=== PATIENT | female | born 1970 | race Caucasian/White ===

== ENCOUNTER 2020-07-18 19:32 | Inpatient (IN) | payer MEDICAID ==
[~2020-07-18] VITALS: Ht 177.8 cm; Wt 97.3 kg
[2020-07-18 20:56] LABS: BASOPHILS 0.2 % (0-2); EOSINOPHILS 0.9 % (0-7); HEMATOCRIT 40.1 % (36.0-48.0); HEMOGLOBIN 13.1 g/dL (12-16); MCH 28.8 pg (26.0-34.0); MCHC 32.7 g/dL (31.0-37.0); MCV 88.1 fL (80.0-100.0); MEAN PLATELET VOLUME 8.9 fL (7.4-10.4); MONOCYTES 11.1 % (2-11); NEUTROPHIL ABS# 11.78 10x3/uL (1.56-6.13); NEUTROPHILS 67.8 % (40-80); PLATELET COUNT 371 10x3/uL (130-400); RBC 4.55 10x6/uL (4.00-5.40); RDW 13.2 % (11.5-14.5); WBC 17.4 10x3/uL (4.8-10.8)
[2020-07-18 21:05] LABS: CALC OSMOLALITY 271 mosm/kg (275-300); CALCIUM 9.2 mg/dL (8.5-10.1); CARBON DIOXIDE 21.5 mmol/L (21.0-32.0); CHLORIDE - SERUM 102 mmol/L (98-107); CREATININE - SERUM 0.8 mg/dL (0.6-1.3); GLUCOSE 111 mg/dL (74-106); POTASSIUM - SERUM 3.6 mmol/L (3.5-5.1); SODIUM 136 mmol/L (136-145); UREA NITROGEN 11 mg/dL (7-18); eGFR NON AFRICAN AMERICAN 80 mL/min (90-120)
[2020-07-18 21:15] LABS: ALBUMIN 3.2 g/dL (3.4-5.0); ALKALINE PHOSPHATASE 89 U/L (30-120); ALT (SGPT) 30 U/L (10-68); AMYLASE - SERUM 17 U/L (25-115); BILIRUBIN - TOTAL 1.35 mg/dL (0.2-1.3); LIPASE 50 U/L (73-393); PROTEIN - SERUM 7.9 g/dL (6.4-8.2)
[2020-07-18 21:17] LABS: TROPONIN-I < 0.017 ng/mL (0.000-0.060)
[2020-07-18 22:55] LABS: BILIRUBIN NEGATIVE (NEGATIVE); KETONE SMALL mg/dL (NEGATIVE); NITRITE NEGATIVE (NEGATIVE); UROBILINOGEN NORMAL mg/dL (< 2); WHITE CELLS - URINE 0-5 HPF (0-4)
[2020-07-18 22:56] LABS: BACTERIA FEW HPF (NONE SEEN)
[2020-07-19] VITALS (7 sets, daily range): BP systolic 95–119; BP diastolic 35–77; Ht 177.8 cm; Wt 97.3 kg
--- NOTE | 2020-07-19 16:51 | NUR ---
PT EDUCATED ON SCD'S, PT IS AMBULATORY IN ROOM, ACTIVE MAKING HER BED, STATES AT NIGHT WHEN SHE LAYS DOWN SHE WILL WEAR THEM
--- NOTE | 2020-07-19 22:49 | NUR ---
PT GOING TO SHOWER REQUESTED
--- NOTE | 2020-07-19 23:12 | NUR ---
PT BACK FROM SHOWER
--- NOTE | 2020-07-19 23:50 | NUR ---
RECEIVED PT FROM ER VIA WHEELCHAIR. PT A&O X4. PIV TO LEFT HAND PATENT AND S/L, NO REDNESS OR SWELLING. ABD DISTENDED AND TENDER TO TOUCH. PT ABLE TO AMBULATE AD RAMONA. EDUCATED PT ON CL AND NEEDS, VERBALIZED UNDERSTANDING. BED LOW, CL IN REACH.
[2020-07-20] VITALS: BP 110/66
--- NOTE | 2020-07-20 01:30 | NUR ---
PT LAYING IN BED EYES CLOSED, EVEN RESPIRATIONS, NO SIGNS OF DISTRESS. BED LOW, CL IN REACH.
[2020-07-20 06:27] LABS: BASOPHILS 0.4 % (0-2); EOSINOPHILS 2.9 % (0-7); HEMATOCRIT 36.2 % (36.0-48.0); HEMOGLOBIN 11.6 g/dL (12-16); IMMATURE GRANULOCYTES 1.1 % (0-5); LYMPHOCYTE ABS# 3.08 10x3/uL (1.18-3.74); LYMPHOCYTES 32.9 % (15-50); MCH 28.6 pg (26.0-34.0); MCV 89.2 fL (80.0-100.0); MEAN PLATELET VOLUME 9.6 fL (7.4-10.4); MONOCYTES 12.8 % (2-11); NEUTROPHIL ABS# 4.66 10x3/uL (1.56-6.13); NEUTROPHILS 49.9 % (40-80); RBC 4.06 10x6/uL (4.00-5.40)
[2020-07-20 06:38] LABS: PLATELET COUNT 454 10x3/uL (130-400); WBC 9.4 10x3/uL (4.8-10.8)
[2020-07-20 06:51] LABS: ALBUMIN 2.7 g/dL (3.4-5.0); ALKALINE PHOSPHATASE 72 U/L (30-120); ALT (SGPT) 24 U/L (10-68); BILIRUBIN - TOTAL 0.38 mg/dL (0.2-1.3); CALC OSMOLALITY 276 mosm/kg (275-300); CALCIUM 8.6 mg/dL (8.5-10.1); CARBON DIOXIDE 22.5 mmol/L (21.0-32.0); CHLORIDE - SERUM 108 mmol/L (98-107); CREATININE - SERUM 0.7 mg/dL (0.6-1.3); GLUCOSE 86 mg/dL (74-106); POTASSIUM - SERUM 3.5 mmol/L (3.5-5.1); PROTEIN - SERUM 6.6 g/dL (6.4-8.2); SODIUM 140 mmol/L (136-145); UREA NITROGEN 10 mg/dL (7-18); eGFR NON AFRICAN AMERICAN > 90 mL/min (90-120)
[2020-07-20 06:58] LABS: INR 1.26 (0.85-1.17); PROTIME 14.6 SECONDS (11.6-15.0)
[2020-07-20 08:17] VITALS: BP 132/42
--- NOTE | 2020-07-20 11:17 | NUR ---
UPPER DENTURES REMOVED & SENT WITH PT TO PACU; PT STATED HER LOWER DENTURES WERE BROKEN & WANTED THEM TO STAY IN, ANESTH. ALLOWED THIS-SH GOLD & SILVER RING BANDS SENT BACK TO FLOOR PER SHEILA CASEY RN
--- NOTE | 2020-07-20 12:48 | NUR ---
BUFFY SUAREZ INITIATED AT 6104
--- NOTE | 2020-07-20 13:07 | OP ---
PATIENT NAME: ZHEN RODRIGUEZ MEDICAL RECORD: [id number] :66 LOCATION:[id number] ADMISSION DATE:07/18/20 SURGEON: LJ WELCH MD DATE OF OPERATION: 07/20/2020 PREOPERATIVE DIAGNOSIS: Acute cholecystitis. POSTOPERATIVE DIAGNOSIS: Acute cholecystitis. PROCEDURE: Laparoscopic cholecystectomy. SURGEON: Jl Welch MD DESCRIPTION OF PROCEDURE: The patient's abdomen was prepped and draped in sterile fashion. A cutdown was made on the superior aspect of the umbilicus, 0 Vicryls were placed on the fascia bilaterally and the fascia was incised with a 15-blade. I then bluntly entered the peritoneal cavity and placed a 12-mm Devin port. Under direct visualization, a 5-mm trocar was placed in the epigastrium and two more 5-mm trocars were placed in the right subcostal region. The gallbladder was noted to be markedly inflamed. The patient had some acute and chronic inflammatory changes. Some of the fatty tissue adherent to the fundus of the gallbladder was densely adherent and very thick consistent with a more chronic inflammation. Eventually, we were able to dissect this omentum off of the dome of the gallbladder. As we dissected down towards the infundibulum, the acute inflammation was more easily visualized. We eventually were able to dissect out the cystic artery and cystic duct and had our critical view of safety. These 2 structures were clipped proximally and distally and ligated in standard fashion. The gallbladder was then taken off the liver bed and placed into an EndoCatch bag. Any bleeding from the liver bed was treated with electrocautery. We irrigated out the right upper quadrant and assured there was no sign of any active bleeding or bile leakage. A 19 round Leonardo drain was inserted through the right lateral subcostal incision and placed near the gallbladder fossa. This was sutured into place with 3-0 nylon. The ports and insufflation were then removed and the gallbladder was taken out through the umbilicus. The umbilical fascia was closed with interrupted 0 Vicryls times 3. The wounds were then irrigated out with normal saline and infused with 10 mL of 0.25% Marcaine with epinephrine. The skin incisions were closed with subcutaneous 5-0 Monocryl and dressed appropriately. COMPLICATIONS: None. CONDITION: Stable. ANESTHESIA: General endotracheal and local. BLOOD LOSS: 100 mL. TRANSINT:[id number] Voice Confirmation ID: [id number] DOCUMENT ID: [id number] OPERATIVE REPORT [id number] ZHEN RODRIGUEZ CHRISTIAN MD at 1307 CC: [id number] DICTATION DATE: 07/20/20 1218 HOSPICE MUSIC THERAPY: 07/20/[address] [facility] [address] [id number]
[2020-07-20 13:20] VITALS: BP 112/54
[2020-07-20 20:00] VITALS: BP 109/57
[2020-07-21] VITALS: BP 116/58
[2020-07-21 04:00] VITALS: BP 108/61
--- NOTE | 2020-07-21 07:30 | NUR ---
NURSE INFORMED OF PATIENT OXYGEN SATURATION AT 73% ON ROOM AIR. PLACED PATIENT ON 7L HIGH FLOW NASAL CANNULA WITH SATS STILL AT 88-90%. CALLED RESPIRATORY FOUR TIMES WITH NO ANSWER. WILL CONTINUE TO MONITOR.
[2020-07-21 07:37] LABS: BASOPHILS 0.1 % (0-2); EOSINOPHILS 0.4 % (0-7); HEMATOCRIT 37.3 % (36.0-48.0); HEMOGLOBIN 11.8 g/dL (12-16); IMMATURE GRANULOCYTES 0.7 % (0-5); LYMPHOCYTE ABS# 2.74 10x3/uL (1.18-3.74); LYMPHOCYTES 15.6 % (15-50); MCH 28.2 pg (26.0-34.0); MCHC 31.6 g/dL (31.0-37.0); MCV 89.2 fL (80.0-100.0); MEAN PLATELET VOLUME 9.1 fL (7.4-10.4); MONOCYTES 12.5 % (2-11); NEUTROPHIL ABS# 12.43 10x3/uL (1.56-6.13); NEUTROPHILS 70.7 % (40-80); PLATELET COUNT 462 10x3/uL (130-400); RBC 4.18 10x6/uL (4.00-5.40); RDW 13.4 % (11.5-14.5)
[2020-07-21 07:39] LABS: WBC 17.6 10x3/uL (4.8-10.8)
[2020-07-21 08:07] LABS: ALBUMIN 2.8 g/dL (3.4-5.0); ALKALINE PHOSPHATASE 98 U/L (30-120); BILIRUBIN - TOTAL 0.62 mg/dL (0.2-1.3); CALC OSMOLALITY 271 mosm/kg (275-300); CALCIUM 8.4 mg/dL (8.5-10.1); CARBON DIOXIDE 25.7 mmol/L (21.0-32.0); CHLORIDE - SERUM 102 mmol/L (98-107); CREATININE - SERUM 0.8 mg/dL (0.6-1.3); GLUCOSE 118 mg/dL (74-106); POTASSIUM - SERUM 3.7 mmol/L (3.5-5.1); PROTEIN - SERUM 6.9 g/dL (6.4-8.2); SODIUM 136 mmol/L (136-145); UREA NITROGEN 9 mg/dL (7-18); eGFR NON AFRICAN AMERICAN 80 mL/min (90-120)
[2020-07-21 08:08] LABS: ALT (SGPT) 56 U/L (10-68)
--- NOTE | 2020-07-21 08:45 | NUR ---
GOT EMANUEL OF RESPIRATORY THERAPY. THEY SAID SHE IS NOT TAKING A DEEP BREATH, AND TO ENCOURAGE THE INCENTIVE SPIROMETER. OXYGEN SATURATION SITTING AT 91% ON 7L.
[2020-07-21 09:21] VITALS: BP 108/61
--- NOTE | 2020-07-21 10:00 | NUR ---
RECHECKED OXYGEN SATURATION ON 7L, 93%. SPOKE TO GILDARDO XAVIER APRN. WILL CONTINUE TO MONITOR.
[2020-07-21 13:06] VITALS: BP 107/50
--- NOTE | 2020-07-21 17:25 | NUR ---
IN BED AROUSES TO VOICE. DENIES NEEDS AT THIS TIME. BED LOW POSITION, CALL LIGHT IN REACH. FREE FROM SIGNS OF DISTRESS. ENCOURAGED ICENTIVE SPIROMETER USE. WILL CONTINUE TO MONITOR.
[2020-07-21 21:02] VITALS: BP 126/61
[2020-07-22 00:25] VITALS: BP 107/50
[2020-07-22 04:38] VITALS: BP 109/60
--- NOTE | 2020-07-22 04:47 | NUR ---
PATIENT REPORTS MODERATE IMPROVEMENT IN PAIN. CONTINUES HISTORY FACULTY MEMBER PUMP. AMADEO DRAIN COMPRESSED, PATENT AND DRAINING. SATS ADEQUATE ON 7L HFNC.
--- NOTE | 2020-07-22 08:07 | NUR ---
IN BED WATCHING TV. DENIES NEEDS AT THIS TIME. BED LOW POSITION, CALL LIGHT IN REACH. FREE FROM SIGNS OF DISTRESS. WILL CONTNUE TO MONITOR. TURNED OXYGEN DOWN TO 5L TO START TITRATION DOWN. PATIENT SAT AT 96%.
[2020-07-22 09:06] VITALS: BP 101/51
--- NOTE | 2020-07-22 10:52 | NUR ---
IV WENT BAD. REMOVED WITH CATH TIP INTACT. RESTARTED IV IN LEFT FOREARM. STUCK 4 TIMES. WILL CONTINUE TO MONITOR.
[2020-07-22 11:57] VITALS: BP 105/60
[2020-07-22 18:04] VITALS: BP 101/51
[2020-07-22 20:00] VITALS: BP 122/45
[2020-07-23] VITALS: BP 112/55
--- NOTE | 2020-07-23 00:09 | NUR ---
PATIENT SATS AT 95% AT 2L VIA NC. DENIES SOB. AMADEO DRAIN PATENT. PAIN MANAGED WITH TECHNICAL SERVICE REP PUMP.
[2020-07-23 04:00] VITALS: BP 99/56
[2020-07-23 05:35] LABS: BASOPHILS 0.2 % (0-2); EOSINOPHILS 2.3 % (0-7); HEMATOCRIT 34.2 % (36.0-48.0); HEMOGLOBIN 10.7 g/dL (12-16); IMMATURE GRANULOCYTES 1.9 % (0-5); LYMPHOCYTE ABS# 2.55 10x3/uL (1.18-3.74); LYMPHOCYTES 20.6 % (15-50); MCH 27.9 pg (26.0-34.0); MCHC 31.3 g/dL (31.0-37.0); MCV 89.3 fL (80.0-100.0); MEAN PLATELET VOLUME 9.3 fL (7.4-10.4); MONOCYTES 12.6 % (2-11); NEUTROPHIL ABS# 7.71 10x3/uL (1.56-6.13); NEUTROPHILS 62.4 % (40-80); RBC 3.83 10x6/uL (4.00-5.40); RDW 13.2 % (11.5-14.5)
[2020-07-23 05:42] LABS: PLATELET COUNT 366 10x3/uL (130-400); WBC 12.4 10x3/uL (4.8-10.8)
[2020-07-23 05:59] LABS: ALBUMIN 2.4 g/dL (3.4-5.0); ALKALINE PHOSPHATASE 92 U/L (30-120); BILIRUBIN - TOTAL 0.66 mg/dL (0.2-1.3); CALC OSMOLALITY 265 mosm/kg (275-300); CALCIUM 8.6 mg/dL (8.5-10.1); CARBON DIOXIDE 26.2 mmol/L (21.0-32.0); CHLORIDE - SERUM 104 mmol/L (98-107); CREATININE - SERUM 0.6 mg/dL (0.6-1.3); GLUCOSE 106 mg/dL (74-106); MAGNESIUM - SERUM 2.1 mg/dL (1.8-2.4); POTASSIUM - SERUM 3.4 mmol/L (3.5-5.1); PROTEIN - SERUM 6.2 g/dL (6.4-8.2); SODIUM 134 mmol/L (136-145); TROPONIN-I < 0.017 ng/mL (0.000-0.060); UREA NITROGEN 7 mg/dL (7-18); eGFR NON AFRICAN AMERICAN > 90 mL/min (90-120)
[2020-07-23 06:10] LABS: ALT (SGPT) 39 U/L (10-68)
--- NOTE | 2020-07-23 07:50 | NUR ---
SITTING ON SIDE OF BED. DENIES NEEDS AT THIS TIME. BED LOW POSITION, CALL LIGHT IN REACH. FREE FROM SIGNS OF DISTRESS. NASAL CANNULA IN PLACE. WILL CONTINUE TO MONITOR.
[2020-07-23 09:04] VITALS: BP 111/45
[2020-07-23 12:43] VITALS: BP 101/53
--- NOTE | 2020-07-23 12:43 | NUR ---
SITTING UP IN CHAIR. DENIES NEEDS AT THIS TIME. CALL LIGHT IN REACH. WILL CONTINUE TO MONITOR.
[2020-07-23 16:35] VITALS: BP 134/53
--- NOTE | 2020-07-23 18:57 | NUR ---
REMOVED AMADEO DRAIN PER PHYSICIAN ORDERS. 2X2 GUAZE PLACED WITH TEGADERM. SITE CDI.
[2020-07-23 20:00] VITALS: BP 112/45
--- NOTE | 2020-07-23 22:31 | NUR ---
DRAIN SITE HAS DRESSING IN PLACE, CDI. PATIENT TRANSITIONING TO PO PAIN MEDICATION PRN AND SCHEDULED FLEXERIL. EDUCATION PROVIDED ON TRANSITION, VERBALIZED UNDERSTANDING AND AGREEANCE WITH THE PLAN. ABLE TO AMBULATE TO THE BATHROOM, REQUIRES USE OF TRAPEZE BAR IN GETTING UP OUT OF BED. USING 1L NASAL CANNULA PRN, ONLY NEEDS IT WHEN AMBULATING FREQUENTLY. INCENTIVE SPIROMETER AND COUGH/DEEP BREATHE ENCOURAGED.
[2020-07-24] VITALS: BP 100/47
[2020-07-24 04:00] VITALS: BP 102/47
[2020-07-24 07:26] LABS: BASOPHILS 0.2 % (0-2); EOSINOPHILS 3.2 % (0-7); HEMATOCRIT 33.7 % (36.0-48.0); HEMOGLOBIN 10.9 g/dL (12-16); IMMATURE GRANULOCYTES 2.2 % (0-5); LYMPHOCYTE ABS# 3.06 10x3/uL (1.18-3.74); LYMPHOCYTES 25.3 % (15-50); MCH 28.6 pg (26.0-34.0); MCHC 32.3 g/dL (31.0-37.0); MCV 88.5 fL (80.0-100.0); MEAN PLATELET VOLUME 9.2 fL (7.4-10.4); MONOCYTES 12.4 % (2-11); NEUTROPHIL ABS# 6.84 10x3/uL (1.56-6.13); NEUTROPHILS 56.7 % (40-80); RBC 3.81 10x6/uL (4.00-5.40); RDW 13.1 % (11.5-14.5); WBC 12.1 10x3/uL (4.8-10.8)
[2020-07-24 07:28] LABS: PLATELET COUNT 451 10x3/uL (130-400)
[2020-07-24 07:43] LABS: ALBUMIN 2.5 g/dL (3.4-5.0); ALKALINE PHOSPHATASE 92 U/L (30-120); ALT (SGPT) 39 U/L (10-68); BILIRUBIN - TOTAL 0.52 mg/dL (0.2-1.3); CALC OSMOLALITY 271 mosm/kg (275-300); CALCIUM 8.8 mg/dL (8.5-10.1); CHLORIDE - SERUM 103 mmol/L (98-107); CREATININE - SERUM 0.6 mg/dL (0.6-1.3); GLUCOSE 97 mg/dL (74-106); MAGNESIUM - SERUM 2.1 mg/dL (1.8-2.4); PHOSPHOROUS 3.4 mg/dL (2.5-4.9); POTASSIUM - SERUM 3.3 mmol/L (3.5-5.1); PROTEIN - SERUM 6.3 g/dL (6.4-8.2); SODIUM 137 mmol/L (136-145); UREA NITROGEN 7 mg/dL (7-18); eGFR NON AFRICAN AMERICAN > 90 mL/min (90-120)
[2020-07-24 08:52] VITALS: BP 118/68
[2020-07-24 12:19] VITALS: BP 110/57
--- NOTE | 2020-07-24 12:46 | NUR ---
SITTING UP IN BED WATCHING TV, NO S/S OF DISTRESS, DENIES NEEDS AT THIS TIME, WILL CONT TO MONITOR.
[2020-07-24] MEDS ORDERED: BACTRIM DS TAB1 EAC1 PO (13:25)
[2020-07-24] MEDS ORDERED: HYDROCODON-ACE1 EAC7 PO (13:25)
--- NOTE | 2020-07-24 13:58 | NUR ---
IV OUT, CATHETER TIP INTACT, WAITING FOR DC PAPERWORK.
--- NOTE | 2020-07-24 14:08 | NUR ---
Nutrition Follow-up AMADEO drain removed yesterday. Tolerating CL diet and advanced to Regular today. Plans for discharge today. Diet: Regular PO intake: 50-100% x last 2 meals. Patient was in bathroom at time of RD visit. Last BM: 07/22/20 x 2. Wt: 214# (07/19/20) Meds noted: abx Labs noted: K 3.3(L), Alb 2.5(L) Recommend continue Regular diet as tolerated. RD will follow-up 07/27/20 if still admitted.
--- NOTE | 2020-07-24 14:13 | MORECARE ---
CASE MANAGEMENT DISCHARGE SUMMARY PATIENT: ZHEN RODRIGUEZ UNIT: [id number] ADM DATE: 07/18/20 AGE: 50 : 66 SEX: F ROOM/BED: D.2229 AUTHOR: LONI GASCA PHYSICIAN: REFERRING PHYSICIAN: CHAPITO WELCH MD DATE OF SERVICE: 07/24/20 Discharge Plan Patient Name: ZHEN RODRIGUEZ [facility] [facility] 1970 Planned Disposition: Home Anticipated Discharge Date: Discharge Date: Expected LOS: Initial Reviewer: [email or web address] Initial Review Date: 07/19/2020 Generated: 07/24/20 3:12 pm DCPIA - Discharge Planning Initial Assessment Updated by [email or web address]: Gin Mo on 07/24/20 2:11 pm * Is the patient Alert and Oriented? Yes * PCP NONE * Pharmacy [address] * Preadmission Environment Home with Family * ADLs Independent * Equipment None * Community resources currently utilized None * Additional services required to return to the preadmission environment? No * Can the patient safely return to the preadmission environment? Yes * Has this patient been hospitalized within the prior 30 days at any hospital? No Patient Name: ZHEN RODRIGUEZ Page [id number] at 1413 All edits/amendments must be made on the electronic document DICTATION DATE: 07/24/201411 TANK FILLER: GERMÁN 07/24/20 1412 RPT#: [id number] CO DATE: STATUS: ADM IN [facility] [address] [place] [address] END OF REPORT
--- NOTE | 2020-07-24 14:21 | MORECARE ---
CASE MANAGEMENT DISCHARGE SUMMARY PATIENT: ZHEN RODRIGUEZ UNIT: [id number] ADM DATE: 07/18/20 AGE: 50 : 66 SEX: F ROOM/BED: D.2229 AUTHOR: LONI GASCA PHYSICIAN: REFERRING PHYSICIAN: CHAPITO WELCH MD DATE OF SERVICE: 07/24/20 Discharge Plan Patient Name: ZHEN RODRIGUEZ Facility: [facility]:[place] : 1970 Planned Disposition: Home Anticipated Discharge Date: Discharge Date: Expected LOS: Initial Reviewer: [email or web address] Initial Review Date: 07/19/2020 Generated: 07/24/20 3:20 pm Comments DCP- Discharge Planning Updated by [email or web address]: [place] Mo on 07/24/20 1:[address] Patient Name: ZHEN RODRIGUEZ Admission Status: ER Accout number: [id number] Admission Date: 07-18-2020 : 1970 Admission Diagnosis:ACUTE CHOLECYSTITIS Attending: CHAPITO WELCH Current LOS: 6 Anticipated DC Date: Planned Disposition: Home Primary Insurance: MEDICAID [place] PENDING Discharge Planning Comments: CM met with patient at bedside after obtaining verbal consent. CM discussed availability / needs of home health, REHAB and medical equipment. PATIENT DENIES ANY DISCHARGE NEEDS. STATES HER RIDE WILL BE HERE IN APPROX 20 MINUTES. [facility] IS ABLE TO BUY HER MEDICATIONS, HER MEDICAID IS PENDING. SHE HAS 2 PRESCRIPTIONS FOR HOME. CM TO FOLLOW AND ASSIST NEEDED. Phonograph Needle Tip Maker: Gin Mo DCPIA - Discharge Planning Initial Assessment Updated by [id number]: Gin Mo on 07/24/20 2:11 pm * Is the patient Alert and Oriented? Yes * PCP NONE * Pharmacy [address] * Preadmission Environment Home with Family * ADLs Independent * Equipment None * Community resources currently utilized None * Additional services required to return to the preadmission environment? No * Can the patient safely return to the preadmission environment? Yes * Has this patient been hospitalized within the prior 30 days at any hospital? No Last DP export: 07/24/20 1:13 pm Patient Name: ZHEN RODRIGUEZ Page [phone] at 1421 All edits/amendments must be made on the electronic document DICTATION DATE: 07/24/201420 HOSE TESTER: GERMÁN 07/24/201420 RPT#: [id number] DC DATE: STATUS: ADM IN [facility] [address] [place] [address] END OF REPORT
--- NOTE | 2020-07-24 14:29 | NUR ---
DC PAPERS SIGNED, DC`D VIA HOSPITAL STAFF AND WHEELCHAIR. PT STATES NO CONCERNS.
--- NOTE | 2020-07-25 10:35 | MORECARE ---
CASE MANAGEMENT DISCHARGE SUMMARY PATIENT: ZHEN RODRIGUEZ UNIT: [id number] ADM DATE: 07/18/20 AGE: 50 : 66 SEX: F ROOM/BED: D.2229 AUTHOR: LONI GASCA PHYSICIAN: REFERRING PHYSICIAN: CHAPITO WELCH MD DATE OF SERVICE: 07/25/20 Discharge Plan Patient Name: ZHEN RODRIGUEZ Facility: [facility]:[place] : 1970 Planned Disposition: Home Anticipated Discharge Date: Discharge Date: 07/24/2020 Expected LOS: Initial Reviewer: [email or web address] Initial Review Date: 07/19/2020 Generated: 07/25/20 11:34 am Comments DCP- Discharge Planning Updated by [email or web address]: Gin Mo on 07/24/20 1:[address] Patient Name: ZHEN RODRIGUEZ Admission Status: ER Accout number: [id number] Admission Date: 07-18-2020 : 1970 Admission Diagnosis:ACUTE CHOLECYSTITIS Attending: CHAPITO WELCH Current LOS: 6 Anticipated DC Date: Planned Disposition: Home Primary Insurance: MEDICAID [place] PENDING Discharge Planning Comments: CM met with patient at bedside after obtaining verbal consent. CM discussed availability / needs of home health, REHAB and medical equipment. PATIENT DENIES ANY DISCHARGE NEEDS. STATES HER RIDE WILL BE HERE IN APPROX 20 MINUTES. [facility] IS ABLE TO BUY HER MEDICATIONS, HER MEDICAID IS PENDING. SHE HAS 2 PRESCRIPTIONS FOR HOME. CM TO FOLLOW AND ASSIST NEEDED. Stna: Gin Mo DCPIA - Discharge Planning Initial Assessment Updated by [email or web address]: Gin Mo on 07/24/20 2:11 pm * Is the patient Alert and Oriented? Yes * PCP NONE * Pharmacy [address] * Preadmission Environment Home with Family * ADLs Independent * Equipment None * Community resources currently utilized None * Additional services required to return to the preadmission environment? No * Can the patient safely return to the preadmission environment? Yes * Has this patient been hospitalized within the prior 30 days at any hospital? No Last DP export: 07/24/20 1:21 pm Patient Name: ZHEN RODRIGUEZ Page [phone] at 1035 All edits/amendments must be made on the electronic document DICTATION DATE: 07/25/20 1034 DRUG SAFETY ASSOCIATE: GERMÁN 07/25/20 1034 RPT#: [id number] DC DATE:07/24/20 STATUS: DIS IN [facility] [address] [place] [address] END OF REPORT
== END 2020-07-24 14:29 | disposition home or self-care (01) | DRG 419 ==
LOC: D.ER 19:32 → D.EDHOLD 23:56 → D.MS 23:56 → D.EDHOLD 07-19 10:32 → D.MS 07-19 23:24
PROVIDERS: Family Medicine; Surgery; ADMIT Surgery; ATTEND Surgery
PROC: 0FT44ZZ Resection of Gallbladder, Percutaneous Endoscopic Approach (ICD-10-PCS; principal; 2020-07-20 10:00)
DX: K80.00 Calculus of gallbladder with acute cholecystitis without obstruction (principal); R11.2 Nausea with vomiting, unspecified; D72.829 Elevated white blood cell count, unspecified; R09.02 Hypoxemia